=== PATIENT | male | born 1985 | race Caucasian/White ===

== ENCOUNTER 2024-08-01 20:28 | Emergency (ER) | payer SELFPAY ==
[2024-08-01] MEDS ORDERED: DIAZEPAM 2 MG TABLET ONE (20:58)
[2024-08-01] MEDS ORDERED: LEVALBUTEROL 1.25 MG/3 ML NEB ONE (20:58)
--- NOTE | 2024-08-01 21:28 | RAD REPORT ---
EXAM: Chest Single View HISTORY: 39 years Male sob, ammonia exposure COMPARISON: None. FINDINGS: LUNGS/PLEURA: The lungs are clear. No pleural effusions or pneumothorax. No pulmonary edema. CARDIAC/MEDIASTINUM: The cardiac silhouette is within normal limits. UPPER ABDOMEN: No significant abnormality. BONES: No acute abnormality. LINES/TUBES/OTHER: N/A IMPRESSION: No evidence of acute cardiopulmonary disease.
--- NOTE | 2024-08-01 22:28 | EDPHYS ---
Physician Documentation [facility] Name: Liam Christopher Age: 39 yrs Sex: Male : 1985 Arrival Date: 08/01/2024 Time: 20:28 Bed 6 Private MD: ED Physician Aayush Guillaume HPI: 08/01 20:55 This 39 yrs old Male presents to ER via Wheelchair with complaints of Exposed to rn chemical leak at work, Shortness Of Breath, Eye Pain, Headache. 20:55 The patient has shortness of breath with light activity. Onset: The symptoms/episode rn began/occurred today. Severity of symptoms: At their worst the symptoms were moderate in the emergency department the symptoms have improved. The patient has not experienced similar symptoms in the past. 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 Patient reports was not wearing respirator. Patient reports exposure maybe 4 minutes until he got outside. [place] okay enough to go home but has been having anxiety, shortness of breath, burning and itchy eyes, headache so came in for evaluation. Denies any past medical history. Does not smoke or vape. No chronic lung issues.. Historical: - Allergies: 20:45 No Known Allergies; cm10 - Home Meds: 20:45 None [Active]; cm10 - PMHx: 20:45 None; cm10 - PSHx: 20:45 None; cm10 - Immunization history:: Adult Immunizations unknown. - Infectious Disease History:: Denies. - Social history:: Smoking status: Patient denies any tobacco usage or history of. - Family history:: not pertinent. - Hospitalizations: : No recent hospitalization is reported. ROS: 20:55 Constitutional: Negative for fever, chills, and weight loss, Eyes: Positive for itchy rn irritated eyes Neck: Negative for injury, pain, and swelling, Cardiovascular: Negative for chest pain, palpitations, and edema, Respiratory: Positive for shortness of breath Abdomen/GI: Negative for abdominal pain, nausea, vomiting, diarrhea, and constipation, Back: Negative for injury and pain, MS/Extremity: Negative for injury and deformity, Skin: Negative for injury, rash, and discoloration, Neuro: Positive for headache Exam: 20:55 Constitutional: This is a well developed, well nourished patient who is awake, alert, rn seems anxious, hyperventilating but speaking full sentences Head/Face: Normocephalic, atraumatic. Eyes: Normal-appearing conjunctiva and cornea. No drainage or erythema ENT: Dry mucous membranes, no stridor Cardiovascular: Regular rate and rhythm. No pulse deficits. Respiratory: Mild hyperventilation. Clear bilateral breath sounds. No wheezing. No retractions. Skin: No erythema or lesions Neuro: Awake and alert, GCS 15, oriented to person, place, time, and situation. Cranial nerves II-XII grossly intact. Motor strength 5/5 in all extremities. Sensory grossly intact. Cerebellar exam normal. Vital Signs: 20:40 BP 148 / 95; Pulse 75; Resp 15; Temp 97.6; Pulse Ox 99% on R/A; cm10 20:46 Weight 98.43 kg; Height 6 ft. 2 in. ; cm10 22:03 BP 132 / 82; Pulse 65; Resp 17 S; Pulse Ox 99% on R/A; ha1 20:46 Body Mass Index 27.86 (98.43 kg, 187.96 cm) cm10 MDM: 20:36 Medical Screening Exam initiated rn 22:25 Differential diagnosis: Anxiety Reaction. rn 22:26 Data reviewed: vital signs, nurses notes, lab test result(s). rn 22:27 Counseling: I had a detailed discussion with the patient and/or guardian regarding the rn historical points, exam findings, and any diagnostic results supporting the discharge/admit diagnosis, radiology results, the need for outpatient follow up, to return to the emergency department if symptoms worsen or persist or if there are any questions or concerns that arise at home. Response to treatment: the patient's symptoms have markedly improved after treatment, and as a result, I will discharge patient. Special discussion: I discussed with the patient/guardian in detail that at this point there is no indication for admission to the hospital. It is understood, however, that if the symptoms persist or worsen the patient needs to return immediately for re-evaluation. 08/01 20:37 Order name: XRAY Chest (1 view); Complete Time: 21:32 rn 08/01 20:46 Order name: O2 Sat Monitoring; Complete Time: 21:03 rn 08/01 20:46 Order name: Cardiac monitoring; Complete Time: 21:03 rn Administered Medications: 21:06 Drug: Levalbuterol Inhalation 1.25 mg Inhalation once Route: Inhalation; br2 21:06 Drug: Diazepam PO 2 mg PO once Route: PO; br2 Disposition Summary: 08/01/24 22:28 Discharge Ordered Notes: Location: Home rn Problem: new rn Symptoms: have improved rn Condition: Stable rn Diagnosis - Exposure with inhalation of ammonia rn Followup: rn - With: Private Physician - When: As needed - Reason: Recheck today's complaints, Re-evaluation by your physician Discharge Instructions: - Discharge Summary Sheet rn - Chemical Inhalation Injury, Adult rn Forms: - Medication Reconciliation Form rn - Antibiotic clinical rn manager - Prescription Opioid Use rn - Patient Portal Instructions rn - Leadership Thank You Letter rn Signatures: Dispatcher [employer] EDMS Aayush Guillaume MD MD rn Martinez, Clarissa RN RN cm10 Cherelle Sommers RN RN br2 Corrections: (The following items were deleted from the chart) 20:37 20:37 Chest Single View+RAD.RAD.[email or web address] ordered. EDMS EDMS
--- NOTE | 2024-08-01 22:28 | ER ---
Nurse's Notes [facility] Name: Liam Christopher Age: 39 yrs Sex: Male : 1985 Arrival Date: 08/01/2024 Time: 20:28 Bed 6 Private MD: Diagnosis: Exposure with inhalation of ammonia Presentation: 08/01 20:40 Chief complaint: Patient states: Exposed to Ammonia today at work at approximately 1245 cm10 today. Pt reports that he is having shortness of breath and had a near-syncopal episode. Coronavirus screen: Client denies travel out of the [place] in the last 14 days. Ebola Screen: Patient denies travel to an Ebola-affected area in the 21 days before illness onset. Initial Sepsis Screen: Does the patient meet any 2 criteria? No. Patient's initial sepsis screen is negative. Does the patient have a suspected source of infection? No. Patient's initial sepsis screen is negative. Risk Assessment: Do you want to hurt yourself or someone else? Patient reports no desire to harm self or others. Onset of symptoms was August 01, 2024. 20:40 Method Of Arrival: Wheelchair cm10 20:40 Acuity: CORINNE 3 cm10 Triage Assessment: 20:44 General: Appears in no apparent distress. comfortable, Behavior is calm, cooperative. cm10 Neuro: No deficits noted. Level of Consciousness is awake, alert, obeys commands, Oriented to person, place, time, situation, Appropriate for age. Respiratory: Reports shortness of breath Airway is patent Respiratory effort is even, unlabored, Respiratory pattern is regular, symmetrical. 22:37 Respiratory: Onset: The symptoms/episode began/occurred gradually. kd3 Historical: - Allergies: 20:45 No Known Allergies; cm10 - Home Meds: 20:45 None [Active]; cm10 - PMHx: 20:45 None; cm10 - PSHx: 20:45 None; cm10 - Immunization history:: Adult Immunizations unknown. - Infectious Disease History:: Denies. - Social history:: Smoking status: Patient denies any tobacco usage or history of. - Family history:: not pertinent. - Hospitalizations: : No recent hospitalization is reported. Screenin:03 [facility] ED Fall Risk Assessment (Adult) History of falling in the last 3 months, ha1 including since admission No falls in past 3 months (0 pts) Confusion or Disorientation No (0 pts) Intoxicated or Sedated No (0 pts) Impaired Gait Mobility Assist Device Used No (0 pt) Altered Elimination No (0 pt) Score/Fall Risk Level 0 - 2 = Low Risk Oriented to surroundings, Maintained a safe environment, Educated pt \T\ family on fall prevention, incl call for assistance when getting out of bed, Hourly rounding (assess needs \T\ fall precautionary measures) done. Abuse screen: Denies threats or abuse. Denies injuries from another. Nutritional screening: No deficits noted. Tuberculosis screening: No symptoms or risk factors identified. Assessment: 22:03 Reassessment: Patient and/or family updated on plan of care and expected duration. Pain ha1 level reassessed. Patient is alert, oriented x 3, equal unlabored respirations, skin warm/dry/pink. 22:37 Pain: Denies pain. Cardiovascular: Rhythm is regular. Respiratory: Airway is patent kd3 Trachea midline Respiratory effort is even, unlabored, Respiratory pattern is regular, symmetrical, Breath sounds are clear bilaterally. Vital Signs: 20:40 BP 148 / 95; Pulse 75; Resp 15; Temp 97.6; Pulse Ox 99% on R/A; cm10 20:46 Weight 98.43 kg; Height 6 ft. 2 in. ; cm10 22:03 BP 132 / 82; Pulse 65; Resp 17 S; Pulse Ox 99% on R/A; ha1 20:46 Body Mass Index 27.86 (98.43 kg, 187.96 cm) cm10 ED Course: 20:34 Patient arrived in ED. gm2 20:36 Aayush Guillaume MD is Attending Physician. rn 20:43 Triage completed. cm10 20:43 Arm band placed on right wrist. Patient placed in waiting room. cm10 20:47 Cherelle Sommers RN is Primary Nurse. br2 21:00 Patient has correct armband on for positive identification. Bed in low position. Call ha1 light in reach. Side rails up X 1. Provided Education on: plan of care . 21:21 XRAY Chest (1 view) In Process Unspecified. EDMS 22:37 No provider procedures requiring assistance completed. Patient did not have IV access kd3 during this emergency room visit. Administered Medications: 21:06 Drug: Levalbuterol Inhalation 1.25 mg Inhalation once Route: Inhalation; br2 21:06 Drug: Diazepam PO 2 mg PO once Route: PO; br2 Medication: 22:37 VIS not applicable for this client. kd3 Outcome: 22:28 Discharge ordered by . rn 22:37 Discharged to home ambulatory, kd3 22:37 Condition: stable 22:37 Discharge instructions given to patient, family, Instructed on discharge instructions, follow up and referral plans. Demonstrated understanding of instructions, follow-up care, 22:37 Patient left the ED. kd3 Signatures: Dispatcher [employer] EDMS Aayush Guillaume MD MD rn Doucette, Kyli, RN RN kd3 Delma Fuller RN RN [email or web address] Anamaria Lau RN RN cm10 Serenity Bartlett 2 Cherelle Sommers RN RN br2
[2024-08-01 23:06] VITALS: TEMP 97.6; O2SAT 99
[2024-08-01 23:07] VITALS: BP 132/82
== END 2024-08-01 22:37 | disposition home or self-care (01) ==
LOC: ER 20:28
DX: T59.891A Toxic effect of other specified gases, fumes and vapors, accidental (unintentional), initial encounter (principal)
CPT/HCPCS: 71045; 99284; J7614